=== PATIENT | male | born 1965 | race Caucasian/White ===

== ENCOUNTER 2018-02-27 07:46 | Outpatient (CLI) | payer MEDICAID ==
[2018-02-27 12:35] LABS: BASOPHILS # (AUTO) 0.1 10^3/uL (0.0-0.1); BASOPHILS % (AUTO) 1.1 %; EOSINOPHILS # (AUTO) 0.2 10^3/uL (0.0-0.7); EOSINOPHILS % (AUTO) 4.5 %; HGB - HEMOGLOBIN 15.2 g/dL (14.0-18.0); LYMPHOCYTES # (AUTO) 1.8 10^3/uL (1.5-3.5); LYMPHOCYTES % (AUTO) 32.4 %; MEAN CORPUSCULAR HEMOGLOBIN 31.4 pg (27.0-31.0); MEAN CORPUSCULAR HGB CONC 34.6 g/dL (32.0-36.0); MEAN CORPUSCULAR VOLUME 90.5 fL (80.0-94.0); MONOCYTES # (AUTO) 0.5 10^3/uL (0.0-1.0); MONOCYTES % (AUTO) 9.8 %; NEUTROPHILS # (AUTO) 2.9 10^3/uL (1.5-6.6); NEUTROPHILS % (AUTO) 52.2 %; PLT - PLATELET COUNT 163 10^3/uL (130-450); RED BLOOD COUNT 4.84 10^6/uL (4.70-6.10); WHITE BLOOD COUNT 5.6 x10^3/uL (4.8-10.8)
[2018-02-27 12:37] LABS: ALBUMIN 4.2 g/dL (3.2-5.5); ALBUMIN/GLOBULIN RATIO 1.4 (1.0-2.2); ALKALINE PHOSPHATASE 69 IU/L (42-121); ALT ALANINE AMINOTRANSFERASE 30 IU/L (10-60); AST ASPARTATE AMINOTRANSFERASE 29 IU/L (10-42); BILIRUBIN,TOTAL 2.4 mg/dL (0.2-1.0); BUN - BLOOD UREA NITROGEN 12 mg/dL (6-20); CARBON DIOXIDE - CO2 27 mmol/L (21-32); CHLORIDE 106 mmol/L (101-111); CHOL/HDL RATIO 3.9 (<5.0); CHOLESTEROL 153 mg/dL; CREATININE 0.9 mg/dL (0.6-1.2); GFR - MDRD 89 (>89); GLUCOSE 109 mg/dL (70-100); HDL CHOLESTEROL 39 mg/dL; LDL CHOLESTEROL,CALCULATED 95 mg/dL; LDL/HDL RATIO 2.4 (<3.6); SODIUM 140 mmol/L (135-145); TOTAL PROTEIN 7.1 g/dL (6.7-8.2); VLDL CHOLESTEROL 19 mg/dL
[2018-02-27 12:39] LABS: PSA TOTAL 0.66 ng/mL (0.000-2.000)
== END 2018-02-27 07:47 | disposition home or self-care (01) ==
LOC: LAB.N 07:46
PROVIDERS: ATTEND Physician Assistant Medical
DX: Z00.00 Encounter for general adult medical examination without abnormal findings (principal); R39.12 Poor urinary stream; R03.0 Elevated blood-pressure reading, without diagnosis of hypertension; N52.9 Male erectile dysfunction, unspecified; E66.9 Obesity, unspecified; Z68.39 Body mass index [BMI] 39.0-39.9, adult
CPT/HCPCS: 36415; 80053; 80061; 83721; 84153; 84403; 84443; 85025

== ENCOUNTER 2018-05-25 11:46 | Day surgery (SDC) | payer MEDICAID ==
--- NOTE | 2018-05-25 10:31 | HISTORY & PHYSICAL EXAMINATION ---
Meds/Allgy - Allergies Allergies/Adverse Reactions: Allergies Allergy/AdvReac Type Severity Reaction Status Date / Time No Known Drug Allergies Allergy Verified 05/25/18 12:28 Impression/Plan - Problem List Problem List: Veto Mclain PA-C initially sent this very pleasant 52 year-old male to my office on April 23, 2018 in consultation for a screening colonoscopy. He continues to describe his bowel movements as regular and normal for him. He denies nausea, vomiting, diarrhea, melena, hematemesis, abdominal pain, unexplained weight loss, or change in the color, character, or caliber of his stool. The patient denies any previous colon evaluation including barium enema, sigmoidoscopy or colonoscopy. Ady does say that he has occasional constipation with rectal bleeding, he also says that he knows that he has hemorrhoids, so he is not worried. Current Allergies: LACTOSE (Critical) Current Meds: SILDENAFIL CITRATE 25 MG ORAL TABLET (SILDENAFIL CITRATE) Take 1 tablet PO 30- 60min before sexual activity. Do not take more than 50mg in a 24hr period.; Route: ORAL Past Medical History: Sleep apnea Obesity Erectile dysfunction Lactose intolerant Past Surgical History: none Family History Summary: Family History of Other Cancer for Mother, skin cancer - Entered On: 04/23/2018 Family History of Other Medical Problems for Father, Father had colon polyps in his sixties. - Entered On: 04/23/2018 Family History of Other Cancer for Mother, skin cancer - Entered On: 04/23/2018 Family History of Other Medical Problems for Father, Father had colon polyps in his sixties. - Entered On: 04/23/2018 Social History Summary: Patient has never smoked. Passive Smoke: N Alcohol Use: N Drug Use: N HIV/High Risk: N Regular Exercise: Y Social History Reviewed: 04/23/2018 Previous Social History: Risk Factors: Smoked Tobacco Use: Never smoker Passive Smoke Exposure: no HIV High Risk Behavior: no Caffeine Use: 4 drinks per day Exercise: yes Times/wk: 5 Type of Exercise: walking, kayaking, hiking Seatbelt Use: 100 % Sun Exposure: frequently Alcohol Use: no Drug Use: no Review of Systems CONSTITUTIONAL: No weight loss, fever, chills, weakness, or fatigue. HEENT: Eyes: No visual loss, blurred vision, double vision or yellow sclerae. Ears, Nose, Throat: No hearing loss, sneezing, congestion, runny nose, or sore throat. SKIN: No rash or itching. RESPIRATORY: No shortness of breath, cough or sputum. GASTROINTESTINAL: No anorexia, nausea, vomiting or diarrhea. No abdominal pain or blood. GENITOURINARY: No dysuria. POSITIVE for impotence. NEUROLOGICAL: No headache,dizziness, syncope, paralysis, ataxia, numbness or tingling in the extremities. No change in bowel or bladder control. MUSCULOSKELETAL: No muscle, back pain, joint pain or stiffness. HEMATOLOGIC: No anemia, bleeding or bruising. LYMPHATICS: No enlarged nodes. No history of splenectomy. PSYCHIATRIC: No history of depression or anxiety. ENDOCRINOLOGIC: No reports of sweating, cold or heat intolerance. No polyuria or polydipsia. ALLERGIES: No history of asthma, hives, eczema or rhinitis. Physical Exam General: 52 year old obese male, appears stated age, well developed, well nourished, evaluated in bed 1 at [facility] r[facility] primary care unit HEENT: Normocephalic, atraumatic, extraocular movement intact, mucous membranes pink and moist, sclera anicteric and not injected, bald Neck: Supple without pain on palpation, mass or bruit Cardiac: Regular rate and rhythm without rub, gallop, or murmur Chest: Clear to auscultation bilaterally Abdomen: Soft, nontender, normoactive bowel sounds, no hepatomegaly, no splenomegaly Genitourinary: Deferred Rectal: Deferred until colonoscopy Extremities: No gross neurovascular problem, no clubbing, cyanosis or edema Gait: No gross motor deficit Psychiatric: Alert and oriented to person place and time, asks and answers questions appropriately, mood and affect appropriate Impression & Recommendations: Screening colonoscopy with possible biopsies and/or polypectomies. Indications, procedure, alternatives (such as barium enema, Cologuard and even no procedure at all) and risks including but not limited to perforation requiring operative repair, bleeding with its risks, and were fully explained to him. In the office, I edita diagrams explaining the colonic anatomy and the proposed procedure and handed it to him. In the office, conscious sedation was discussed at length with him as were its risks including but not limited to loss of airway, aspiration, respiratory depression, and not enough relief of pain and anxiety and he indicated that he wished to have conscious sedation for his procedure. In the office, I explained that MAC anesthesia is associated with a higher incidence of colon perforation. Review of his history does not reveal any significant systemic disease that would contraindicate use of conscious sedation or MAC anesthesia. All questions were fully answered. Verbal and written consent was obtained. The patient in preparation for his colonoscopy has been n.p.o. and his colon has been mechanically prepped. 20 minutes of [id number] time spent with the patient the majority of which was spent in discussion and in the generation of this document [employer] disclaimer: This document was created in part using voice recognition technology. Because of the inherent limitations of the system ([employer]'s [employer] Dictate user manual states that the licensee understands that speech recognition is a statistical process and that recognition errors are inherent in the process), occasional same sounding word substitutions and grammatical errors do occur and persist despite proofreading. Please read this document for context.
[2018-05-25] MEDS ORDERED: LACTATED RINGERS 1,000 ML IV ONE (12:20)
[2018-05-25] MEDS ORDERED: MIDAZOLAM 2 MG/2 ML VIAL IVP ONE (13:11)
[2018-05-25] MEDS ORDERED: fentaNYL 250 MCG/5 ML VIAL IVP ONE (13:11)
[2018-05-25 14:01] VITALS: BP 120/72
== END 2018-05-25 11:47 | disposition home or self-care (01) ==
LOC: SDS 11:46
PROVIDERS: ATTEND Surgery
PROC: 0DBK8ZX Excision of Ascending Colon, Via Natural or Artificial Opening Endoscopic, Diagnostic (ICD-10-PCS; principal; 2018-05-25 13:00)
DX: Z12.11 Encounter for screening for malignant neoplasm of colon (principal); K63.89 Other specified diseases of intestine; K64.8 Other hemorrhoids; E73.9 Lactose intolerance, unspecified; G47.30 Sleep apnea, unspecified; E66.9 Obesity, unspecified
CPT/HCPCS: 45380; J3010; J7120

== ENCOUNTER 2021-05-30 17:38 | Emergency (ER) | payer MEDICAID ==
[2021-05-30 17:47] VITALS: BP 154/96
--- NOTE | 2021-05-30 19:11 | ED Physician Documentation ---
History of Present Illness - Stated complaint Stated Complaint: LIP LAC - Chief complaint Chief Complaint: Laceration - Additonal information Additional information: 56-year-old male presents emergency department for evaluation of a lower lip laceration. He was trying to unclog his sink when the hardware came loose and he banged his mouth against the sink. He has a 1 inch laceration just below the lip. Does not extend through the mouth into the internal mucosa. Unsure of last tetanus. No dental pain. No loss of consciousness. He is not anticoagulated. Review of Systems Constitutional: reports: Reviewed and negative Throat: reports: Reviewed and negative. denies: Dental pain / toothache Cardiac: reports: Reviewed and negative Respiratory: reports: Reviewed and negative Skin: reports: Laceration (s) (Lower lip) Musculoskeletal: reports: Reviewed and negative PD PAST MEDICAL HISTORY - Past Medical History Past Medical History: No Cardiovascular: None Respiratory: Sleep apnea Endocrine/Autoimmune: None GI: None : None HEENT: None Psych: None Musculoskeletal: None Derm: None - Past Surgical History Past Surgical History: Yes General: Colonoscopy Ortho: Other - Allergies Allergies/Adverse Reactions: Allergies Allergy/AdvReac Type Severity Reaction Status Date / Time No Known Drug Allergies Allergy Verified 05/30/21 17:48 - Social History Does the pt smoke?: No Smoking Status: Never smoker Does the pt drink ETOH?: No Does the pt have substance abuse?: No - Immunizations Immunizations are current?: Yes PD ED PE NORMAL - General General: Alert and oriented X 3, No acute distress, Well developed/nourished - HEENT HEENT: Atraumatic, Moist mucous membranes, Pharynx benign - Neck Neck: Supple, no meningeal sign, No adenopathy, No JVD - Cardiac Cardiac: RRR, No murmur - Derm Derm: Other (2.5 cm laceration lower lip midline. Does not extend through the vermilion border. Does not extend into the internal mucosa.) - Neuro Neuro: Alert and oriented X 3 Eye Opening: Spontaneous Motor: Obeys Commands Verbal: Oriented GCS Score: 15 - Psych Psych: Normal mood Results - Vitals Vitals: Vital Signs - 24 hr 05/30/21 17:44 Temperature 35.4 C L Heart Rate 75 Respiratory 18 Rate Blood Pressure 154/96 H O2 Saturation 97 Oxygen O2 Source Room air Procedures - Laceration (location) lower lip Length in cm: 2.5 Wound type: Linear, Into subcut fat Neurovascular status: Sensory intact, Motor intact Tendon involvement: Tendon intact Anesthesia: Lidocaine 1% with epi Wound preparation: Chlorhexadine, Irrigated copiously NS Skin layer closure: Nylon, Interrupted, Size #-0 - enter number (5), Sutures - enter # (4) Other: Patient tolerated well, No complications, Neurovascular intact, Tetanus booster given PD MEDICAL DECISION MAKING - ED course Complexity details: reviewed results, re-evaluated patient, considered differential, d/w patient ED course: -year-old male here with a lower lip laceration sustained when he was repairing his sink. This was not through and through. Wound was easily closed with 4 interrupted sutures at the bedside. Tetanus was updated today in the ER routine wound care and emergent return precautions discussed. No findings of dental trauma. Departure - Departure Disposition: 01 Home, Self Care Clinical Impression: Lip laceration Qualifiers: Encounter type: initial encounter Qualified Code(s): S01.511A - Laceration without foreign body of lip, initial encounter Condition: Stable Record reviewed to determine appropriate education?: Yes Comments: Ady you can shower normally. Your sutures should soila removed in about 5 to 7 days. Most facial or lip lacerations heal rather quickly and well. However if you have any concerns of infection such as fevers, redness, milky drainage or increased pain then please return immediately to the ER for a second evaluation. I do recommend that you place a thin layer of antibiotic ointment over the laceration twice daily until healed. Your tetanus was updated today and is good for the next 7 to 10 years.
[2021-05-30] MEDS: TETANUS/DIPHTHERIA/PERTUSSIS 0.5 ML SYRINGE IM ONE (19:15)
[2021-05-30] MEDS: BACITRACIN ZINC OINT 1 PACKET TOP STA (20:08)
== END 2021-05-30 20:10 | disposition home or self-care (01) ==
LOC: ED 17:38
DX: S01.511A Laceration without foreign body of lip, initial encounter (principal); W22.8XXA Striking against or struck by other objects, initial encounter; Y93.89 Activity, other specified; Z23 Encounter for immunization
CPT/HCPCS: 12011; 99283

== ENCOUNTER 2022-05-22 10:49 | Outpatient (CLI) | payer MEDICAID ==
[2022-05-22 12:05] VITALS: BP 138/76
--- NOTE | 2022-05-22 12:05 | SLEEP CARE CONSULTATION ---
Information from patient questionnaire entered by Molly Fish. I have reviewed and concur with the information entered by Molly Fish. This document represents the service I personally performed and the decisions made by me, Yajaira Liao ARNP. History of Present Illness Service Date and Time: 05/22/2022 1049 Reason for Visit: New patient, sleep apnea on CPAP therapy Chief Complaint: reports: Snoring, Observed pauses in breathing, Frequent awakenings at night, Other (UPDATE SUPPLIES ) Date of Onset: 2005 Usual bedtime: 10PM Time it takes to fall asleep: 15-45MIN Snores at night: Yes Observed to quit breathing while asleep: Yes Sleeps alone due to snoring: No Number of times waking at night: 2-3 Reasons for waking at night: reports: Snoring, Bathroom, Other (UNKNOWN REASONS ) Toss, Turn, or Twitch while sleeping: Yes Recalls having dreams: No Usually gets out of bed at: 5-6 AM Feels refreshed in the morning: No Morning headache: No Sleepy or fatigued during the day: Yes Ever fallen asleep while driving: No Takes day naps: No Dreams during day naps: No Prior sleep studies: Yes Year and Where: [facility] Type of Sleep Study: Polysomnography Additional HPI information: SADIQ SOLOMON was previously diagnosed to have extremely severe, AHI 92.3, obstructive sleep apnea-hypopnea syndrome and comes in today to establish care for CPAP therapy. He states his sleep is getting worse, he is waking up more often at night from snoring or apneas. He used to be able to sleep on his back but now has to sleep on side with head "hanging" over the side of his bed. He does not take naps during the day. He has gained about 25 lbs in last 3 years. - Parasomnia Symptoms Ever been unable to move upon waking from sleep: No Walks in sleep: No Talks in sleep: No Ever acted out dreams in sleep: No Ever felt weak in the knees when startled or emotional: No Bothered by creepy, crawly, restless sensations in legs: No Problems with memory or concentration: Yes CPAP Compliance Data Compliance data discussion: He has an old Respironics CPAP machine that he got in 2007 and uses a [employer] style of data card. We are unable to download his data. He uses his CPAP night for about 5 hours. He is using a Dreamwear nasal pillows mask, medium to small cushion. He is getting his supplies online. Subjective Patient concerns: denies: aerophagia, mask discomfort, air blowing in eyes, mask leak noise, condensation in mask/hose, nasal congestion, dry mouth, nose, throat, epistaxis Observed to snore while using device: Yes Current pressure setting perceived as: comfortable (but not sure if it is enough pressure) On therapy, patient: reports: sleeping better, awakening more refreshed, being more awake and alert during the day, more rested overall. denies: drowsiness while driving Initial [place] Sleepiness Scale score: 2 (05/09/22) Past Medical History Past Medical History: reports: Other (JESS since 2007) Social History The patient's occupation is a [employer]. Patient is and lives in . Have you smoked in the past 12 months: No Alcohol use: No Caffeine use: Yes Caffeine amount and frequency: A LOT FROM 5AM-12PM Family History Family history of sleep disordered breathing: No Allergies and Home Medications Known drug allergies: No Drug allergies reviewed: Yes Home medication list reviewed: Yes (no daily medications) Review of Systems Weight gain over past 5 years: 30 Cardiovascular: reports: high blood pressure (no treatment at this time) Gastrointestinal: denies: heartburn Urinary: reports: frequency, urgency Neurological: denies: headaches Psychiatric: denies: anxiety, depression Ear/Nose/Throat: reports: tonsillectomy, wisdom teeth removed Endocrine: reports: sluggishness, too hot or cold, increased urination Musculoskeletal: reports: joint pain, neck pain, back pain Physical Exam Vital signs obtained and entered by: MOLLY Marquez MA Blood Pressure: 138/76 (LEFT ARM) Cuff size: regular Heart Rate: 77 O2 Saturation: 95 Height: 5 ft 11 in Weight: 306 lb 3.2 oz Body Mass Index: 42.7 BMI Classification: Morbidly Obese Neck circumference: 19.5 Heart: regular rate and rhythm Lungs: clear bilaterally Impression and Plan 1. Obstructive Sleep Apnea-Hypopnea Syndrome, extremely severe, with unknown treatment compliance and unknown apnea control. On CPAP therapy, the patient has better sleep quality and is more rested overall. Patient has been on a CPAP since 2007 when he was originally diagnosed. He has been having worsening symptoms of his sleep apnea. He has an old Respironics device that I cannot get data from for compliance or pressure settings. He states that he does wear his CPAP mask every night for about 5 hours. He is noting more snoring and is waking up gasping even with the mask on. I think his machine may not be working effectively. Sadiq needs a DME company for his supplies. I will have my freight coordinator inform of DME options. Patient advised to contact this office if further supply problems. The patients CPAP is over 5 years old and of reasonable use. Thus, the CPAP will be updated. A DWO prescription will be made. Compliance guidelines for new device and follow up discussed. Patient's apnea severity and rationale for treatment to reduce apnea, improve sleep quality and reduce cardiovascular and cerebrovascular events was reviewed. Patient is also wanting to get a bed that is adjustable and will elevates his head as needed. He is requesting a note stating need for elevated head of bed and mattress for his sleep apnea will help him afford the bed. It would be advantageous to have a bed that the head can be elevated to help reduce apneas, especially on nights he cannot use CPAP like with power outages. He does have extremely severe obstructive sleep apnea which could benefit from his head being elevated when sleeping. I will write out a note for this as requested. 2. Obesity, unspecified. Currently patients BMI is 42.7. Obesity increases the risk of apnea, CPAP pressure requirements and overall health risks especially cardiovascular and diabetes. Thus patient is advised to lose weight. * Continue auto CPAP pressure at 10-20 cmH2O * Update machine * Update supplies * Note for adjustable bed given to patient as requested * Notify me if snoring with mask or feeling that the pressure is too much or too little * Attempt to lose weight * Call this office if any problems using CPAP * Return for follow up one month after obtaining new device, or sooner if concerns arise Counseling Topics: Spare mask, Weight loss health impact Visit Type: In Office Time Spent with Patient (minutes): 44 Provider Statement: I spent 100% of the Face to Face Visit with the patient with greater than 50% spent counseling the patient and coordination of care.
== END 2022-05-22 10:50 | disposition home or self-care (01) ==
LOC: SC 10:49
PROVIDERS: ATTEND Nurse Practitioner Family
DX: G47.33 Obstructive sleep apnea (adult) (pediatric) (principal); E66.01 Morbid (severe) obesity due to excess calories; Z68.41 Body mass index [BMI] 40.0-44.9, adult
CPT/HCPCS: 99203; 99212

== ENCOUNTER 2022-10-24 14:31 | Outpatient (CLI) | payer MEDICAID ==
--- NOTE | 2022-10-24 10:07 | SLEEP CARE CONSULTATION ---
Information from patient questionnaire entered by Kym Avila. I have reviewed and concur with the information entered by Kym Avila. This document represents the service I personally performed and the decisions made by , Yajaira Liao ARNP. History of Present Illness Service Date and Time: 10/24/2022 1000 Previous diagnosis: Extremely Severe, Obstructive Sleep Apnea-Hypopnea Syndrome Reason for follow up: first compliance (1st compliance, set up 08/12/2022), first compliance after device update Equipment type: CPAP (Resmed Airsense 11, s/u 08/2022) Equipment obtained from: Other ([employer], getting supplies) Mask style: Nasal pillows Mask brand: Respironics ([employer]wear) Backup mask available: Yes (old mask) Last cushion change: May Prior sleep studies: Yes Year and Where: [facility] Type of Sleep Study: Polysomnography HPI additional information: SADIQ SOLOMON was diagnosed to have extremely severe, AHI 92.3, obstructive sleep apnea-hypopnea syndrome and returns via video telehealth visit today for CPAP therapy first compliance after updating device follow-up. Sleep Study - Results Type of Sleep Study: Polysomnography Prior sleep studies: Yes Year and Where: [facility] CPAP Compliance Data - Data Reviewed with Patient Average duration of nightly device use: 7 hours 18 minutes Compliance rate %: 100 (60/60 days used) Current pressure setting (cmH2O): 10-20 Average residual AHI: 1.2 Central apnea: 0.4 Obstructive apnea: 0.6 Subjective Patient concerns: reports: dry mouth, nose, throat (dry mouth). denies: aerophagia, mask discomfort, air blowing in eyes, mask leak noise, condensation in mask/hose, nasal congestion, epistaxis Observed to snore while using device: No Current pressure setting perceived as: comfortable On therapy, patient: reports: sleeping better, awakening more refreshed, being more awake and alert during the day, more rested overall. denies: drowsiness while driving Initial [place] Sleepiness Scale score: 2 (05/09/22) Current [place] Sleepiness Scale score: 3 Allergies and Home Medications Known drug allergies: No Drug allergies reviewed: Yes Home medication list reviewed: Yes (no changes) Allergy and home medication list: Allergies No Known Drug Allergies Allergy Review of Systems Review of systems same as previous: Yes (no changes) Physical Exam Vital signs obtained and entered by: Yajaira Galeas NP Height: 5 ft 11 in Weight: 299 lb (pt measured at home) Body Mass Index: 41.7 BMI Classification: Morbidly Obese Impression and Plan 1. Obstructive Sleep Apnea-Hypopnea Syndrome, extremely severe, with good treatment compliance and good apnea control. On CPAP therapy, the patient has better sleep quality and is more rested overall. Sadiq likes his new machine but states that the water chamber runs out in one night and he is getting dry mouth. I checked his settings on the website and his machine is set on automatic. He knows how to adjust it if needed and he was encouraged to increase the setting to 4 or 5 and see if that improves the oral dryness. He voiced understanding and agreement with plan. Patient's apnea severity and rationale for treatment to reduce apnea, improve sleep quality and reduce cardiovascular and cerebrovascular events was reviewed. 2. Obesity, unspecified. Currently patients BMI is 41.7. Obesity increases the risk of apnea, CPAP pressure requirements and overall health risks especially cardiovascular and diabetes. Thus patient is advised to lose weight. * Continue auto CPAP pressure at 10-20 cmH2O * Notify me if snoring with mask or feeling that the pressure is too much or too little * Attempt to lose weight * Call this office if any problems using CPAP * Return for follow up in 1 year, or sooner if concerns arise Counseling Topics: Spare mask, Weight loss health impact Visit Type: Telehealth Video Video Type: Doximity Patient Location: Home Location of Provider: Office Patient agrees and consents to this telehealth visit type: Yes Patient agrees to have their insurance billed: Yes Time Spent with Patient (minutes): 12 Provider Statement: I spent 100% of the Telehealth Video Call with the patient with greater than 50% spent counseling the patient and coordination of care.
== END 2022-10-24 14:32 | disposition home or self-care (01) ==
LOC: SC 14:31
PROVIDERS: ATTEND Nurse Practitioner Family
DX: G47.33 Obstructive sleep apnea (adult) (pediatric) (principal); E66.01 Morbid (severe) obesity due to excess calories; Z68.41 Body mass index [BMI] 40.0-44.9, adult

== ENCOUNTER 2023-11-05 11:53 | Outpatient (CLI) | payer MEDICAID ==
--- NOTE | 2023-11-05 09:22 | SLEEP CARE CONSULTATION ---
Information from patient questionnaire entered by Molly Fish. I have reviewed and concur with the information entered by Molly Fish. This document represents the service I personally performed and the decisions made by , Yajaira Liao ARNP. History of Present Illness Service Date and Time: 11/05/2023 0920 Previous diagnosis: Extremely Severe, Obstructive Sleep Apnea-Hypopnea Syndrome AHI: 92.3 (2007) Reason for follow up: annual (LAST SEEN 10/2022) Equipment type: CPAP (Resmed Airsense 11, s/u 08/2022) Equipment obtained from: Other ([facility], getting supplies) Mask style: Nasal pillows Mask brand: Resmed (AirFit) Backup mask available: Yes Last cushion change: few months Prior sleep studies: Yes Year and Where: [facility], 10/23/2007 Type of Sleep Study: Polysomnography HPI additional information: ASDIQ SOLOMON was diagnosed to have extremely severe, AHI 92.3, obstructive sleep apnea-hypopnea syndrome and returns via video appointment today for CPAP therapy annual follow-up. Sleep Study - Results Type of Sleep Study: Polysomnography Prior sleep studies: Yes Year and Where: [facility] Compliance Data - Data Reviewed with Patient Average duration of nightly device use: 7 HRS 32 MINS Compliance rate %: 98 (11/03/22-11/02/23; 359/365 days used) Current pressure setting (cmH2O): 10-20 Average residual AHI: 1.0 Central apnea: 0.3 Obstructive apnea: 0.6 Hypopnea: 0.1 Average large leak: 0 L/min Subjective Missed days of use due to: reports: other (power outage) Patient concerns: denies: aerophagia, mask discomfort, air blowing in eyes, mask leak noise, condensation in mask/hose, nasal congestion, dry mouth, nose, throat, epistaxis Observed to snore while using device: No Current pressure setting perceived as: comfortable On therapy, patient: reports: sleeping better, awakening more refreshed, being more awake and alert during the day, more rested overall. denies: drowsiness while driving Initial [place] Sleepiness Scale score: 2 (05/09/22) Current [place] Sleepiness Scale score: 0 (11/05/23) Allergies and Home Medications Known drug allergies: No Drug allergies reviewed: Yes Home medication list reviewed: Yes (no changes) Allergy and home medication list: Allergies No Known Drug Allergies Allergy (Verified 11/03/23 10:58) Review of Systems Review of systems same as previous: Yes (NO CHANGE) Physical Exam Vital signs obtained and entered by: MOLLY Marquez MA Height: 5 ft 11 in (PER PT) Weight: 290 lb (PER PT) Weight change since last visit: 9 lb loss Body Mass Index: 40.4 BMI Classification: Morbidly Obese Impression and Plan 1. Obstructive Sleep Apnea-Hypopnea Syndrome, extremely severe, with good treatment compliance and good apnea control. On CPAP therapy, the patient has better sleep quality and is more rested overall. Patient has significant improvement of their sleep apnea and is satisfied with current CPAP therapy. Patient denies problems with oral dryness, nasal congestion, epistaxis, skin irritation or aerophagia. Patient's apnea severity and rationale for treatment to reduce apnea, improve sleep quality and reduce cardiovascular and cerebrovascular events was reviewed. 2. Obesity, unspecified. Currently patients BMI is 40.4. Obesity increases the risk of apnea, CPAP pressure requirements and overall health risks especially cardiovascular and diabetes. Thus patient is advised to lose weight. * Continue auto CPAP pressure at 10-20 cmH2O * Update supply prescription * Notify me if snoring with mask or feeling that the pressure is too much or too little * Attempt to lose weight * Call this office if any problems using CPAP * Return for follow up in 12 months, or sooner if concerns arise Counseling Topics: Spare mask, Weight loss health impact Prescriptions: Device supplies Follow up with Sleep Care in: 1 year Visit Type: Telehealth Video Video Type: Tim Patient Location: Home Location of Provider: Office Patient agrees and consents to this telehealth visit type: Yes Patient agrees to have their insurance billed: Yes Time Spent with Patient (minutes): 12 Provider Statement: I spent 100% of the Telehealth Video Call with the patient with greater than 50% spent counseling the patient and coordination of care.
== END 2023-11-05 11:54 | disposition home or self-care (01) ==
LOC: SC 11:53
PROVIDERS: ATTEND Nurse Practitioner Family
DX: G47.33 Obstructive sleep apnea (adult) (pediatric) (principal); E66.01 Morbid (severe) obesity due to excess calories; Z68.41 Body mass index [BMI] 40.0-44.9, adult